=== PATIENT | male | born 1950 | race Caucasian/White ===

== ENCOUNTER 2024-01-13 05:49 | Day surgery (SDC) | payer MEDICARE, OTHER ==
[2024-01-13 06:31] VITALS: RESP 16
[2024-01-13] MEDS: Lactated Ringers 1,000 ML IV SCH (06:33)
[2024-01-13] MEDS ORDERED: DIPRIVAN 200 MG/20 ML IV ONE ×2 (07:49→08:05)
[2024-01-13] MEDS ORDERED: Xylocaine-Mpf 2% 5 Ml Vial ONE (08:08)
[2024-01-13 08:42] VITALS: TEMP 97
[2024-01-13 08:53] VITALS: BP 150/91; PULSE 66; O2SAT 98
--- NOTE | 2024-01-13 10:05 | OP ---
SURGERY DATE/TIME: 01/13/2024 0755 PREOPERATIVE DIAGNOSIS: Positive Cologuard. POSTOPERATIVE DIAGNOSIS: Normal colon. PROCEDURE: Colonoscopy. SURGEON: Dr. Almanza. ANESTHESIA: Medications given by anesthesia department. HISTORY: The patient is a 73-year-old white male patient who had a positive Cologuard test. He is here now for further investigation. The patient was appraised of the risk of the procedure including the risk of perforation, phlebitis, untoward reaction to medication, bleeding and missed lesions. The patient verbalized his understanding and desired to have the procedure performed. DESCRIPTION OF PROCEDURE: The patient was given the medications by the anesthesia department. He had continuous pulse oximetry, ECG monitoring and intermittent blood pressure monitoring during the examination. He was placed in the left lateral decubitus position. A digital rectal examination was performed and revealed a fairly tight anal sphincter area. We were not able to introduce the index finger without significant pressure. We therefore checked with the little finger and we were able to pass through. No masses were felt in this area. The flexible Olympus pediatric colonoscope was used to intubate the rectum. A view of the colon was developed sequentially to the cecum. Upon insertion and withdrawal, careful inspection no mucosal lesions were encountered. The scope was removed from the patient who tolerated the procedure well and was sent back to OP recovery in good condition. The prep was noted to be fair to good.
== END 2024-01-13 09:08 | disposition home or self-care (01) ==
LOC: SDC 05:49
PROVIDERS: ATTEND Family Medicine
DX: R19.4 Change in bowel habit (principal); E11.9 Type 2 diabetes mellitus without complications
CPT/HCPCS: 82947; J2704

== ENCOUNTER 2024-06-04 06:09 | Day surgery (SDC) | payer MEDICARE, OTHER ==
[2024-06-04] MEDS: Lactated Ringers 1,000 ML IV SCH (06:18)
[2024-06-04 06:29] VITALS: RESP 16
[2024-06-04] MEDS ORDERED: DIPRIVAN 200 MG/20 ML IV ONE (07:32)
[2024-06-04] MEDS ORDERED: Xylocaine-Mpf 2% 5 Ml Vial ONE (07:32)
[2024-06-04 08:12] VITALS: O2SAT 95
[2024-06-04 08:26] VITALS: BP 116/72; PULSE 64; TEMP 97.8
--- NOTE | 2024-06-06 13:17 | OP ---
SURGERY DATE/TIME: 06/04/2024 4263 - [id number] PREOPERATIVE DIAGNOSIS: Anemia. POSTOPERATIVE DIAGNOSIS: Normal stomach status post Adeola-en-Y procedure. PROCEDURE: Esophagogastroduodenoscopy. SURGEON: Shawn Almanza MD. ANESTHESIA: Medications were given by the anesthesia department. INDICATIONS: The patient is a 73-year-old white male patient who has been taking aspirin 325 mg and Plavix for history of possible stroke. The patient has also apparently previously had a Adeola-en-Y procedure which was not disclosed to me prior to the examination. After the examination, we had further discussion to the patient's to follow. DESCRIPTION OF PROCEDURE AND FINDINGS: The patient was placed in the left lateral decubitus position. A bite block was placed. A flexible Olympus gastroscope was used to intubate the oropharynx. A view of the larynx was normal. Scope was easily introduced in the esophagus which appeared to be normal throughout its length. The stomach was entered where there was evidence of a gastric bypass-type surgery, apparently a Adeola-en-Y which had been performed. Both ends were carried out, and no evidence of any bleeding was noted. Retroflexed view revealed no evidence of hiatal hernia. The scope was removed. Patient tolerated the procedure well, sent back to outpatient recovery in good condition. The patient did receive anesthesia medication from the anesthesia department. He also had continuous pulse oximetry, ECG monitoring, and intermittent blood pressure monitoring during the examination. After the procedure, the patient was discussed with the patient's about the fact that we had found him to be anemic and in fact he is now receiving B12 shots as well. We suggested to her to have him back off the aspirin from 325 to 81 mg a day and to follow up with his primary care provider.
== END 2024-06-04 08:38 | disposition home or self-care (01) ==
LOC: SDC 06:09
PROVIDERS: ATTEND Family Medicine
DX: D64.9 Anemia, unspecified (principal); Z98.84 Bariatric surgery status; E11.9 Type 2 diabetes mellitus without complications
CPT/HCPCS: 82947; J2704